=== PATIENT | female | born 1965 | race Asian ===

== ENCOUNTER 2016-12-12 12:48 | Emergency (ER) | payer OTHER ==
[~2016-12-12] VITALS: Ht 157.5 cm; Wt 94.3 kg
[2016-12-12 13:00] VITALS: TEMP 98
[2016-12-12] MEDS ORDERED: LISI20TA31 OR (13:19)
[2016-12-12 15:00] VITALS: BP 128/86
== END 2016-12-12 15:12 | disposition home or self-care (01) ==
LOC: ED 12:48
DX: M25.512 Pain in left shoulder (principal); M75.52 Bursitis of left shoulder; M75.32 Calcific tendinitis of left shoulder
CPT/HCPCS: 96372; 99283; J1885; J2930

== ENCOUNTER 2022-11-26 15:34 | Outpatient (CLI) | payer OTHER ==
[~2022-11-26 15:34] MED LIST: LISI20TA31 OR
== END 2022-11-26 23:21 | disposition home or self-care (01) ==
LOC: RAD 15:34
PROVIDERS: ATTEND Physician Assistant
DX: M25.511 Pain in right shoulder (principal); M25.512 Pain in left shoulder